=== PATIENT | female | born 1975 | race African-American/Black ===

== ENCOUNTER 2020-08-31 18:34 | Inpatient (IN) | payer OTHER ==
[~2020-08-31] VITALS: Ht 165.1 cm; Wt 98.4 kg
[2020-08-31 19:59] LABS: Basophils # (auto) 0 10 ^3/uL (0-0.2); Eosinophils # (auto) 0.2 10 ^3/uL (0-0.8); Eosinophils % (auto) 3.4 % (0.0-7.0); Hemoglobin 9.7 g/dL (12.2-16.2); Lymphocytes # (auto) 0.7 10 ^3/uL (0.4-5.4); Mean Corpuscular Volume 77.1 fL (80.0-100.0); Monocytes # (auto) 0.4 10 ^3/uL (0-1.3)
[2020-08-31 20:00] LABS: Basophils % (auto) 0.3 % (0.0-2.0); Hematocrit 30.8 % (36.0-46.0); Lymphocytes % (auto) 10.5 % (10.0-50.0); Mean Corpuscular Hemoglobin 24.2 pg (28.0-32.0); Mean Corpuscular Hgb Conc. 31.4 g/dL (32.0-36.0); Neutrophils # (auto) 5.1 10 ^3/uL (1.6-8.6); Neutrophils % (auto) 78.8 % (37.0-80.0); Red Blood Cells 3.99 10^6/uL (4.0-5.20); Red Cell Distribution Width 17.2 % (11.8-14.3); White Blood Cell 6.4 10^3/uL (4.4-10.8)
[2020-08-31 20:06] LABS: Albumin 3.2 g/dL (3.4-5.0); Calcium 8.4 mg/dL (8.5-10.1); Potassium 3.9 mmol/L (3.5-5.1)
[2020-08-31 20:12] LABS: BUN/Creatinine Ratio 13.2; Bilirubin, Total 0.3 mg/dL (0.2-1.0); Total Protein 7.9 g/dL (6.4-8.2)
[2020-08-31] MEDS ORDERED: PIPERACILLIN-TAZOB 3.375GM 100 ML IV ONE (20:15)
[2020-08-31] MEDS ORDERED: ONDANSETRON HCL 4 MG/2 ML VIAL IV ONE (20:15)
[2020-08-31] MEDS ORDERED: MORPHINE SULFATE INJECTION 2 MG/ML SYRG IV ONE (20:15)
[2020-08-31 22:44] LABS: INR 1.03 (0.9-1.15); Partial Thromboplastin Time 30.8 sec (23.0-31.2)
[2020-09-01] MEDS: SODIUM CHLORIDE 0.9% 1,000 ML IV SCH ×2 (00:45→14:45)
[2020-09-01] MEDS ORDERED: ONDANSETRON HCL 4 MG/2 ML VIAL IV PRN ×2 (00:45→16:30)
[2020-09-01] MEDS: metroNIDAZOLE 500MG/100ML 100 ML IV SCH ×3 (05:56→22:16)
[2020-09-01] MEDS: MORPHINE SULFATE INJECTION 2 MG/ML SYRG IV PRN ×2 (07:50→20:32)
[2020-09-01] MEDS ORDERED: cefTRIAXone 1GM/50ML D5W 50 ML IV SCH (09:00)
[2020-09-01 13:18] LABS: Urine Bacteria FEW /hpf (None Seen); Urine Blood Negative /uL (Negative); Urine Specific Gravity 1.018 (1.001-1.035); Urine WBC 15 /hpf (0 - 5)
[2020-09-01] MEDS ORDERED: BUPIVACAINE 0.25% INJ 50ML VIAL ONE (15:38)
[2020-09-01] MEDS ORDERED: LIDOCAINE 1% HCL (LOCAL ANESTH.) INJ 20ML MDV ONE (15:38)
[2020-09-01] MEDS ORDERED: HEPARIN SODIUM (PORCINE) 5000 UNITS/ML 1ML VIAL ONE (15:40)
[2020-09-01] MEDS ORDERED: cefOXitin 2GM/100ML 100 ML IV ONE (16:02)
[2020-09-01] MEDS ORDERED: LIDOCAINE 1% (LOCAL ANESTH.) PF 5ml SDV ONE (16:12)
[2020-09-01] MEDS ORDERED: SUCCINYLCHOLINE CHLORIDE 20 MG/ML 10ML VIAL IV ONE (16:12)
[2020-09-01] MEDS ORDERED: MIDAZOLAM HCL 2MG/2ML 2ml VIAL (1mg/ml) ONE (16:15)
[2020-09-01] MEDS ORDERED: PROPOFOL 10 MG/ML 20 ML IV ONE (16:16)
[2020-09-01] MEDS ORDERED: ROCURONIUM 10MG/ML 10ML VIAL IV ONE (16:16)
[2020-09-01] MEDS ORDERED: METOCLOPRAMIDE HCL 5MG/ml INJ 2ml VIAL ONE (16:19)
[2020-09-01] MEDS ORDERED: fentaNYL CITRATE 100 MCG/2 ML VL ONE (16:28)
[2020-09-01] MEDS ORDERED: HYDROmorphone HCL 2 MG/ML VL IV PRN ×2 (16:30)
[2020-09-01] MEDS ORDERED: NALOXONE HCL 0.4 MG/ML VIAL IV PRN (16:30)
[2020-09-01] MEDS ORDERED: NEOSTIGMINE 1 MG/ML INJ (10mg/10ML VIAL) ONE (16:57)
[2020-09-01] MEDS ORDERED: GLYCOPYRROLATE 0.2 MG/ML 1ML VIAL ONE (16:57)
[2020-09-01 18:33] VITALS: BP 115/71
[2020-09-01] MEDS ORDERED: ATE50T PO (19:06)
[2020-09-01] MEDS ORDERED: USTE1INJ SC (19:06)
[2020-09-01] MEDS ORDERED: PREG200C19 PO (19:06)
[2020-09-01] MEDS ORDERED: OXY10CRT PO (19:06)
[2020-09-01] MEDS ORDERED: MORP1CAP9 PO (19:06)
[2020-09-01 20:00] VITALS: BP 115/71
[2020-09-01 22:00] VITALS: BP 115/71
[2020-09-02] MEDS: MORPHINE SULFATE INJECTION 2 MG/ML SYRG IV PRN ×2 (00:54→09:39)
[2020-09-02] MEDS: SODIUM CHLORIDE 0.9% 1,000 ML IV SCH (03:36)
[2020-09-02 05:00] VITALS: BP 127/80
[2020-09-02] MEDS: metroNIDAZOLE 500MG/100ML 100 ML IV SCH (06:01)
[2020-09-02 06:05] LABS: Basophils # (auto) 0.1 10 ^3/uL (0-0.2); Eosinophils # (auto) 0.1 10 ^3/uL (0-0.8); Hemoglobin 9.2 g/dL (12.2-16.2); Lymphocytes # (auto) 0.5 10 ^3/uL (0.4-5.4); Mean Corpuscular Hemoglobin 24.6 pg (28.0-32.0); Monocytes # (auto) 0.3 10 ^3/uL (0-1.3); Red Blood Cells 3.74 10^6/uL (4.0-5.20)
[2020-09-02 06:08] LABS: Basophils % (auto) 1.1 % (0.0-2.0); Lymphocytes % (auto) 8.8 % (10.0-50.0); Mean Corpuscular Hgb Conc. 32.8 g/dL (32.0-36.0); Mean Corpuscular Volume 74.9 fL (80.0-100.0); Monocytes % (auto) 5.6 % (0.0-12.0); Neutrophils % (auto) 83.5 % (37.0-80.0)
[2020-09-02 06:26] LABS: INR 1.08 (0.9-1.15); Partial Thromboplastin Time 29.9 sec (23.0-31.2)
[2020-09-02 06:30] LABS: Potassium 3.5 mmol/L (3.5-5.1)
[2020-09-02 06:54] LABS: Albumin 2.8 g/dL (3.4-5.0); BUN/Creatinine Ratio 10.4; Bilirubin, Total 0.3 mg/dL (0.2-1.0); Calcium 8.6 mg/dL (8.5-10.1); Magnesium 1.7 mg/dL (1.6-2.6); Total Protein 7.2 g/dL (6.4-8.2)
[2020-09-02 08:00] VITALS: BP 128/77
[2020-09-02] MEDS ORDERED: levoFLOXacin 500MG 100 ML IV SCH (10:00)
== END 2020-09-02 13:10 | disposition left against medical advice (07) | DRG 354 ==
LOC: ER 18:34 → OVERFLOW 18:35 → CENTRAL 09-01 16:30
PROVIDERS: ADMIT Nurse Practitioner; ATTEND Internal Medicine Geriatric Medicine
PROC: 0WQF4ZZ Repair Abdominal Wall, Percutaneous Endoscopic Approach (ICD-10-PCS; principal; 2020-09-01 16:16)
DX: K50.90 Crohn's disease, unspecified, without complications (principal); K35.80 Unspecified acute appendicitis; E44.0 Moderate protein-calorie malnutrition; N39.0 Urinary tract infection, site not specified; K42.9 Umbilical hernia without obstruction or gangrene; I10 Essential (primary) hypertension; D63.8 Anemia in other chronic diseases classified elsewhere; K66.0 Peritoneal adhesions (postprocedural) (postinfection); M79.7 Fibromyalgia; Z20.822 Contact with and (suspected) exposure to COVID-19; G43.909 Migraine, unspecified, not intractable, without status migrainosus; E66.9 Obesity, unspecified; Z88.8 Allergy status to other drugs, medicaments and biological substances; Z90.710 Acquired absence of both cervix and uterus; Z80.9 Family history of malignant neoplasm, unspecified; Z68.36 Body mass index [BMI] 36.0-36.9, adult; Z53.29 Procedure and treatment not carried out because of patient's decision for other reasons
CPT/HCPCS: 36415; 71045; 74176; 80053; 80061; 81001; 83690; 83735; 84702; 85025; 85610; 85730; 86850; 86900; 86901; 87040; 87426; 93005; 96365; 96367; 96375; G0378; J0330; J0694; J0696; J1956; J2001; J2250; J2405; J2543; J2704; J3490